=== PATIENT | female | born 1995 | race African-American/Black ===

== ENCOUNTER 2019-09-25 12:21 | Emergency (ER) | payer OTHER ==
[2019-09-25 12:50] VITALS: BP 111/59
--- NOTE | 2019-09-25 13:50 | ER Document Report ---
HPI - HPI Time Seen by Provider: 09/25/19 13:42 Pain Level: 4 Notes: 23-year-old female patient presenting with right ankle pain and left index finger pain. Patient denies any injury to the left index finger, states there is swelling. She does report history of right ankle injury however she states this was 2 years ago and the pain has just been progressively getting worse. Patient has already been seen by an orthopedic and a floor surfacer for her injury. - REPRODUCTIVE Reproductive: DENIES: : Past Medical History - General Information source: Patient - Social History Smoking Status: Unknown if Ever Smoked Frequency of alcohol use: None Drug Abuse: None Family History: Reviewed & Not Pertinent Patient has suicidal ideation: No Patient has homicidal ideation: No - Medical History Medical History: Negative Surgical Hx: Negative - Immunizations Immunizations up to date: Yes Vertical Provider Document - CONSTITUTIONAL Notes: PHYSICAL EXAMINATION: GENERAL: Well-appearing, well-nourished and in no acute distress. HEAD: Atraumatic, normocephalic. EYES: Pupils equal round extraocular movements intact, conjunctiva are normal. ENT: Nares patent NECK: Normal range of motion LUNGS: No respiratory distress Musculoskeletal: Normal range of motion to right ankle and left index finger. No obvious swelling, erythema or ecchymosis. Full range of motion, cap refill less than 3 seconds. Strong dorsalis pedis pulse 2 right foot. NEUROLOGICAL: Normal speech, normal gait. PSYCH: Normal mood, normal affect. SKIN: Warm, Dry, normal turgor, no rashes or lesions noted. Course - Re-evaluation Re-evalutation: X-ray is negative. Patient encouraged to follow-up with orthopedics if she continues to have pain. Patient verbalized understanding and agreement with this plan. - Vital Signs Vital signs: Temp Pulse Resp BP Pulse Ox 97.6 F 64 16 111/59 L 100 09/25/19 12:49 09/25/19 12:49 09/25/19 12:49 09/25/19 12:49 09/25/19 12:49 Discharge - Discharge Clinical Impression: Left index finger pain Right ankle pain Qualifiers: Chronicity: chronic Qualified Code(s): M25.571 - Pain in right ankle and joints of right foot Condition: Stable Disposition: HOME, SELF-CARE Additional Instructions: Your x-rays today were unremarkable. There is no fracture or dislocation of either extremities. Please follow-up with orthopedics since you have been having continued pain over the last 2 years. Their phone number is below. In the meantime take ibuprofen 600 mg every 6 hours for your pain and discomfort. Referrals: CARLIE ANDERSON, DO [ACTIVE STAFF] - Follow up as needed
--- NOTE | 2019-09-25 15:16 | RADIOLOGY REPORT (SQ) ---
EXAM DESCRIPTION: ANKLE RIGHT COMPLETE COMPLETED DATE/TIME: 09/25/2019 2:43 pm REASON FOR STUDY: old injury, increased pain COMPARISON: None. NUMBER OF VIEWS: Three views. TECHNIQUE: AP, lateral, and oblique radiographic images acquired of the right ankle. LIMITATIONS: None. FINDINGS: MINERALIZATION: Normal. BONES: No acute fracture or dislocation. The ankle mortise and talar dome are intact. JOINTS: No effusions. SOFT TISSUES: No soft tissue swelling or radiopaque foreign body. OTHER: No other finding. IMPRESSION: No acute osseous abnormality of the right ankle. TECHNICAL DOCUMENTATION: JOB ID: [id number] [employer]- All Rights Reserved Reading location - IP/workstation name: [email or web address]
--- NOTE | 2019-09-25 15:16 | RADIOLOGY REPORT (SQ) ---
EXAM DESCRIPTION: FINGER LEFT COMPLETED DATE/TIME: 09/25/2019 2:43 pm REASON FOR STUDY: no injury COMPARISON: None. NUMBER OF VIEWS: Three views. TECHNIQUE: AP, lateral, and oblique images acquired of the left second finger. LIMITATIONS: None. FINDINGS: MINERALIZATION: Normal. BONES: No acute fracture or dislocation. SOFT TISSUES: No soft tissue swelling or radiopaque foreign body. OTHER: No other finding. IMPRESSION: No acute osseous abnormality of the left 2nd finger. TECHNICAL DOCUMENTATION: JOB ID: [id number] [employer]- All Rights Reserved Reading location - IP/workstation name: [email or web address]
== END 2019-09-25 16:42 | disposition home or self-care (01) ==
LOC: ER 12:21
DX: M79.645 Pain in left finger(s) (principal); M25.571 Pain in right ankle and joints of right foot